=== PATIENT | female | born 1990 | race Caucasian/White ===

== ENCOUNTER 2019-09-30 08:58 | Outpatient (CLI) | payer BC ==
--- NOTE | 2019-09-30 10:55 | CT ---
CT ABDOMEN WITH AND WITHOUT IV CONTRAST: HISTORY: A 29-year-old female with constipation, mass, and abdominal pain. FINDINGS: The lung bases are clear. No calcified gallstones are seen. The liver, spleen, pancreas, kidneys, a nd left adrenal gland appear normal. There is a tiny low-density lesion in the peripheral aspect of the right lobe of the liver measuring about 3-4 mm, too small to characterize, statistically likely r epresentative finding. There is a 1.9 cm right adrenal nodule which does not have attenuation characteristics of a benign ad enoma on the noncontrasted study. No free air, free fluid, or lymphadenopathy is seen in the abdomen. The small bowel loops are not ab normally dilated. There are mild degenerative changes in the lower lumbar spine. IMPRESSION: Indeterminate 19 mm right adrenal nodule. Further evaluation with MRI is recommended. POS: [facility]
[2019-09-30] MEDS ORDERED: Iopamidol-370 76% 500 ML 1 ML ONE (13:46)
== END 2019-09-30 08:59 | disposition home or self-care (01) ==
LOC: BICCT 08:58
PROVIDERS: ATTEND Internal Medicine
DX: K59.00 Constipation, unspecified (principal); R19.00 Intra-abdominal and pelvic swelling, mass and lump, unspecified site; R10.9 Unspecified abdominal pain; E27.8 Other specified disorders of adrenal gland
CPT/HCPCS: 74170

== ENCOUNTER 2019-10-27 08:52 | Outpatient (CLI) | payer BC ==
--- NOTE | 2019-10-27 11:50 | MRI ---
MRI ABDOMEN WITH AND WITHOUT CONTRAST: Date: 10/27/2019 HISTORY: Neoplasm of adrenal gland. COMPARISON: CT examination dated 09/30/2019. FINDINGS: No significant pericardial or pleural fluid. The gallbladder is normal. No intrahepatic or extrahepat ic biliary dilatation. The pancreatic duct is normal. The spleen is normal. The background pancreatic parenchymal enhancement is normal. The left adrenal g land is normal. The majority of the right adrenal gland is peripherally attenuated and not well seen. There is a bilo bed T2 hyperintense mass of the right adrenal gland measuring 19.0 mm in transverse, craniocaudal dim ension of 24.0 mm, with an AP dimension of 21.0 mm, which is bilobed. No internal enhancement. No hydronephrosis. No abnormal renal enhancement. Aortic contour normal. Background marrow signal tiago ears normal. IMPRESSION: 1. Benign right adrenal cyst, which is bilobed, with no internal enhancement. 2. No other abnormality within the abdomen. 3. No follow-up is required. 4. 3.0 mm nonenhancing cyst hepatic segment 8. POS: [facility]
[2019-10-27] MEDS ORDERED: Magnevist 469MG/ML 20 ML VIAL ONE (13:26)
== END 2019-10-27 08:53 | disposition home or self-care (01) ==
LOC: BICMRI 08:52
PROVIDERS: ATTEND Internal Medicine
DX: D49.7 Neoplasm of unspecified behavior of endocrine glands and other parts of nervous system (principal); E27.8 Other specified disorders of adrenal gland; K76.89 Other specified diseases of liver
CPT/HCPCS: 74183; A9579

== ENCOUNTER 2020-04-04 15:46 | Outpatient (CLI) | payer BC ==
--- NOTE | 2020-04-04 15:59 | RAD ---
XR Chest Pa Lat STANDARD HISTORY: Shortness of breath COMPARISON: None FINDINGS: The heart size is normal. The lungs are well expanded without focal areas of consolidation, pneumothorax or pleural effusions. IMPRESSION: No radiographic evidence of acute cardiopulmonary process.
== END 2020-04-04 15:47 | disposition home or self-care (01) ==
LOC: BICRAD 15:46
PROVIDERS: ATTEND Family Medicine
DX: R06.02 Shortness of breath (principal)
CPT/HCPCS: 36415; 71046; 80053; 81001; 84439; 84443; 85025; 86140